=== PATIENT | male | born 1935 | race Asian ===

== ENCOUNTER 2021-04-03 13:36 | Inpatient (IN) | payer MEDICARE, MEDICAID ==
[~2021-04-03] VITALS: Ht 149.9 cm; Wt 38.6 kg
[2021-04-03] MEDS ORDERED: FERROUS SULFATE (13:46)
[2021-04-03] MEDS ORDERED: AMLODIPINE (13:46)
[2021-04-03] MEDS ORDERED: LOSARTAN (13:46)
[2021-04-03 15:04] LABS: HEMATOCRIT. 24.1 % (42.0-52.0); HEMOGLOBIN. 7.9 g/dL (14.0-18.0); MEAN CORPUSCULAR HEMOGLOBIN 35.8 pg (28.0-32.0); MEAN CORPUSCULAR VOLUME 109.2 fL (80.0-94.0); MEAN PLATELET VOLUME 7.6 fl (7.4-10.4); PLATELET 72 x1000/uL (130-400); RED BLOOD CELL COUNT 2.21 mill/uL (4.7-6.1); RED CELL DISTRIBUTION WIDTH 14.8 % (11.6-14.6)
[2021-04-03 15:20] LABS: CHLORIDE 104 mEq/L (98-107)
[2021-04-03] MEDS ORDERED: CEFTRIAXONE 1 G PREMIX 50 ML IV ONE (15:30)
[2021-04-03] MEDS ORDERED: AZITHROMYCIN 500 MG in DEXT 5% WATER 250 ML IV SCH (15:30)
[2021-04-03] MEDS ORDERED: DEXAMETHASONE 4MG/ML 1ML VIAL IV ONE (15:30)
[2021-04-03 16:00] LABS: PLATELET ESTIMATE DECREASED
[2021-04-03] MEDS ORDERED: SODIUM CHLORIDE 0.9% 1,000 ML IV ONE (16:30)
[2021-04-03] MEDS ORDERED: ACETAMINOPHEN 325MG TABLET PO PRN ×2 (18:45)
[2021-04-03] MEDS ORDERED: ONDANSETRON HCL 4MG/2ML INJ IV PRN (18:45)
[2021-04-03] MEDS ORDERED: ALBUTEROL 6.7GM HFA INHALER ORI PRN (18:45)
[2021-04-03] MEDS ORDERED: ZOLPIDEM TARTRATE 5MG TABLET PO PRN (18:45)
[2021-04-03] MEDS ORDERED: MAGNESIUM/ALUMINUM HYDROXIDE/SIMETHICONE 30ML UDC PO PRN (18:45)
[2021-04-03] MEDS ORDERED: GUAIFENESIN 200MG/10ML SUGAR FREE UDC PO PRN (18:45)
[2021-04-03] MEDS ORDERED: DIPHENHYDRAMINE 50MG/ML VIAL IV PRN (18:45)
[2021-04-03] MEDS ORDERED: CEFTRIAXONE 1 G PREMIX 50 ML IV SCH (18:45)
[2021-04-03 20:15] VITALS: BP 117/64
[2021-04-03 20:51] LABS: TOTAL IRON BINDING CAPACITY 148 ug/dL (250-450)
[2021-04-03] MEDS: SODIUM CHLORIDE 0.9% INJ 3ML FLUSH IVF SCH (21:16)
[2021-04-03 21:17] LABS: FOLIC ACID (FOLATE) SERUM >20 ng/mL ng/mL (>5.38)
[2021-04-03 21:29] LABS: VITAMIN B12 SERUM 1498 pg/mL (211-911)
[2021-04-03] MEDS ORDERED: ROSU5TAB PO (22:21)
[2021-04-03] MEDS ORDERED: ZINC50TA69 PO (22:21)
[2021-04-03] MEDS ORDERED: VALS40TA11 PO (22:21)
[2021-04-03] MEDS ORDERED: MELO-106 PO (22:21)
[2021-04-03] MEDS ORDERED: AMLO5TAB88 PO (22:21)
[2021-04-03] MEDS ORDERED: VIT1CAPS26 MT (22:21)
[2021-04-03] MEDS ORDERED: MAGN400T29 MT (22:21)
[2021-04-03] MEDS ORDERED: FERR325T6 MT (22:21)
[2021-04-04] VITALS (7 sets, daily range): BP systolic 123–142; BP diastolic 67–74
[2021-04-04] MEDS: SODIUM CHLORIDE 0.9% INJ 3ML FLUSH IVF SCH ×3 (05:43→21:31)
[2021-04-04] MEDS: DEXAMETHASONE 10 MG/ML VIAL IV SCH (08:55)
[2021-04-04] MEDS ORDERED: ERGOCALCIFEROL 50000UNITS CAPSULE PO SCH (09:00)
[2021-04-04] MEDS ORDERED: AZITHROMYCIN 500 MG in DEXT 5% WATER 250 ML IV SCH (16:00)
[2021-04-04] MEDS: CEFTRIAXONE 1,000 MG in DEXTROSE 5% WATER 50 ML IV SCH (16:44)
[2021-04-04] MEDS: AZITHROMYCIN 500 MG in DEXT 5% WATER 250 ML IV SCH (17:56)
[2021-04-05] VITALS: BP 134/75
[2021-04-05 04:00] VITALS: BP 128/71
[2021-04-05] MEDS: SODIUM CHLORIDE 0.9% INJ 3ML FLUSH IVF SCH ×3 (06:28→22:00)
[2021-04-05 07:50] LABS: HEMATOCRIT. 24.5 % (42.0-52.0); HEMOGLOBIN. 8.2 g/dL (14.0-18.0); MEAN CORPUSCULAR HEMOGLOBIN 36.1 pg (28.0-32.0); MEAN CORPUSCULAR VOLUME 108.7 fL (80.0-94.0); MEAN PLATELET VOLUME 8.1 fl (7.4-10.4); PLATELET 95 x1000/uL (130-400); RED BLOOD CELL COUNT 2.26 mill/uL (4.7-6.1); RED CELL DISTRIBUTION WIDTH 14.6 % (11.6-14.6)
[2021-04-05 08:00] VITALS: BP 111/71
[2021-04-05] MEDS: DEXAMETHASONE 10 MG/ML VIAL IV SCH (08:43)
[2021-04-05 09:54] LABS: NUCLEATED RED BLOOD CELLS 1 /100 WBC; PLATELET ESTIMATE DECREASED
[2021-04-05 12:00] VITALS: BP 107/64
[2021-04-05] MEDS: LEVOTHYROXINE SODIUM 100MCG TABLET PO SCH (12:40)
[2021-04-05] MEDS: DEXT 5%/0.45% NACL 1000ML 1,000 ML IV SCH (12:44)
[2021-04-05 16:00] VITALS: BP 118/66
[2021-04-05] MEDS ORDERED: THROAT LOZENGES-BENZOCAINE/MENTH/CETYLPYRD CL LOZENGES MM PRN (16:30)
[2021-04-05] MEDS: CEFTRIAXONE 1,000 MG in DEXTROSE 5% WATER 50 ML IV SCH (16:54)
[2021-04-05] MEDS: AZITHROMYCIN 500 MG in DEXT 5% WATER 250 ML IV SCH (16:54)
[2021-04-05 20:15] VITALS: BP 126/68
[2021-04-06 00:10] VITALS: BP 117/67
[2021-04-06 04:00] VITALS: BP 124/71
[2021-04-06] MEDS: DEXT 5%/0.45% NACL 1000ML 1,000 ML IV SCH ×2 (06:03→16:22)
[2021-04-06 08:03] VITALS: BP 109/48
[2021-04-06] MEDS: DEXAMETHASONE 10 MG/ML VIAL IV SCH (08:49)
[2021-04-06] MEDS: LEVOTHYROXINE SODIUM 100MCG TABLET PO SCH (08:49)
[2021-04-06 12:09] VITALS: BP 104/59
[2021-04-06 12:56] LABS: PHOSPHORUS 2.7 mg/dL (2.5-4.9)
[2021-04-06 13:00] LABS: T4 FREE 1.15 ng/dL (0.76-1.46)
[2021-04-06] MEDS ORDERED: GUAIFENESIN-DM 200MG-20MG/10ML UDC PO PRN (14:45)
[2021-04-06 16:05] VITALS: BP 120/59
[2021-04-06] MEDS: CEFTRIAXONE 1,000 MG in DEXTROSE 5% WATER 50 ML IV SCH (16:22)
[2021-04-06] MEDS: AZITHROMYCIN 500 MG in DEXT 5% WATER 250 ML IV SCH (17:45)
[2021-04-06 20:00] VITALS: BP 101/62
[2021-04-06] MEDS: SODIUM CHLORIDE 0.9% INJ 3ML FLUSH IVF SCH (22:00)
[2021-04-07] VITALS: BP 113/66
[2021-04-07] MEDS: DEXT 5%/0.45% NACL 1000ML 1,000 ML IV SCH ×2 (03:30→16:58)
[2021-04-07 04:00] VITALS: BP 113/66
[2021-04-07] MEDS: SODIUM CHLORIDE 0.9% INJ 3ML FLUSH IVF SCH ×2 (06:29→13:51)
[2021-04-07 08:00] VITALS: BP 108/61
[2021-04-07] MEDS: DEXAMETHASONE 10 MG/ML VIAL IV SCH (08:41)
[2021-04-07] MEDS: LEVOTHYROXINE SODIUM 100MCG TABLET PO SCH (08:41)
[2021-04-07 12:00] VITALS: BP 99/55
[2021-04-07 15:23] VITALS: BP 99/55
[2021-04-07] MEDS: CEFTRIAXONE 1,000 MG in DEXTROSE 5% WATER 50 ML IV SCH (15:52)
[2021-04-07 16:00] VITALS: BP 100/61
[2021-04-07] MEDS: AZITHROMYCIN 500 MG in DEXT 5% WATER 250 ML IV SCH (16:56)
== END 2021-04-07 18:45 | disposition home or self-care (01) | DRG 871 ==
LOC: ER 13:36 → ENRESERV 17:47 → 7WST 19:05
PROVIDERS: ADMIT Internal Medicine; ATTEND Internal Medicine
DX: A41.89 Other specified sepsis (principal); U07.1 COVID-19; E43 Unspecified severe protein-calorie malnutrition; J12.82 Pneumonia due to coronavirus disease 2019; J96.01 Acute respiratory failure with hypoxia; N17.9 Acute kidney failure, unspecified; D61.818 Other pancytopenia; Z68.1 Body mass index [BMI] 19.9 or less, adult; D64.9 Anemia, unspecified; D69.6 Thrombocytopenia, unspecified; E03.9 Hypothyroidism, unspecified; E78.00 Pure hypercholesterolemia, unspecified; E78.5 Hyperlipidemia, unspecified; E86.0 Dehydration; I12.9 Hypertensive chronic kidney disease with stage 1 through stage 4 chronic kidney disease, or unspecified chronic kidney disease; N18.9 Chronic kidney disease, unspecified; R65.20 Severe sepsis without septic shock; M19.90 Unspecified osteoarthritis, unspecified site; R74.01 Elevation of levels of liver transaminase levels; D75.89 Other specified diseases of blood and blood-forming organs; Z90.5 Acquired absence of kidney; Z79.899 Other long term (current) drug therapy
CPT/HCPCS: 36415; 71045; 80048; 80053; 82607; 82746; 82962; 83036; 83540; 83550; 83880; 84100; 84145; 84439; 84443; 84484; 85025; 86140; 87426; 93005; 99291; J0456; J0696; J1100; J7060